=== PATIENT | male | born 1985 | race Asian ===

== ENCOUNTER 2016-09-02 18:41 | Emergency (ER) | payer SELFPAY ==
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
== END 2016-09-02 20:13 | disposition home or self-care (01) ==
LOC: ED 18:41
DX: S01.01XA Laceration without foreign body of scalp, initial encounter (principal); S06.0X0A Concussion without loss of consciousness, initial encounter; Y29.XXXA Contact with blunt object, undetermined intent, initial encounter; Y92.9 Unspecified place or not applicable